=== PATIENT | female | born 1995 | race Caucasian/White ===

== ENCOUNTER 2022-11-08 01:09 | Inpatient (IN) | payer OTHER, SELFPAY ==
[2022-11-08 01:12] VITALS: BP 146/94; PULSE 88; RESP 18; TEMP 36.7; O2SAT 98; BMI 32.3
--- NOTE | 2022-11-08 01:38 | ED_ITS ---
HPI - Psych General Chief Complaint: Psychiatric Symptoms Stated Complaint: SI Time Seen by Provider: 11/08/22 01:16 Source: patient Mode of arrival: EMS Limitations: no limitations History of Present Illness HPI Narrative: 27 yo female with recent divorce made SI statements to friend - found with dog leash in hand plan was to hang herself from tree. no actual hanging no medical complaints. brought in by EMS. MD complaint: suicidal ideation and feels depressed Onset (ago): week(s) Duration: getting worse History of same: Yes Relieving factors: none Exacerbating factors: other (life stress) Context: significant life stressor Associated psychiatric symptoms: depression and suicidal ideation Associated symptoms: denies other symptoms Treatments prior to arrival: placed on mental health hold If self harm: admits thoughts of self harm and has plan Related Data Allergies Allergy/AdvReac Type Severity Reaction Status Date / Time Seasonal Allergies Allergy Runny Nose Verified 11/08/22 01:22 Review of Systems Review of Systems: Constitutional : No Fever, No Chills ENT/Mouth : No Ear Pain, No Nasal Congestion, No sore throat Eyes: No Eye Pain, No Swelling, No Redness Cardiovascular : No Chest Pain, No SOB Respiratory : No Cough, No Sputum, No Dyspnea Gastrointestinal : No Nausea, No Vomiting, No Diarrhea, No Hematochezia, No Melena Genitourinary : No Dysuria, No Urinary Frequency, No Hematuria Musculoskeletal : No Myalgias Skin : No Skin Lesions, No rash Neuro : No Weakness, No Numbness, No Paresthesias, No Dizziness, No Headache Psych : positive Anxiety, positive Depression, positive SI no HI Heme/Lymph: No Lymphadenopathy Endocrine : No Polyuria, No Polydipsia All other systems reviewed and are negative [facility] Past Medical History Medical History (Updated 11/08/22 @ 01:43 by Kirsty Rousseau DO) Anxiety Social History Social History (Updated 11/08/22 @ 01:42 by Kirsty Rousseau DO) Patient Tobacco Use Status: Never used Tobacco Use of substances other than those prescribed or required for medical reasons: No Advance Directives: No Advance Directives Information Provided: Yes Physical Exam Vital Signs: Vital Signs: Last Vital Signs Temp 98.1 F 11/08/22 01:12 Pulse 88 11/08/22 01:12 Resp 18 11/08/22 01:12 BP 146/94 H 11/08/22 01:12 Pulse Ox 98 08/26/23 01:12 O2 Del Method Room Air 11/08/22 01:12 BMI result Body Mass Index 32.3 Appearance: Alert. Oriented X3. No acute distress. crying tearful Eyes: Pupils equal, round and reactive to light. ENT: Pharynx normal. Neck: Normal inspection. Neck supple. CVS: Normal heart rate and rhythm. Pulses normal. Respiratory: No respiratory distress. Breath sounds normal. Abdomen: Soft and nontender. Skin: Skin warm and dry. Normal skin color. Normal skin turgor. Extremities: No lower extremity edema. No calf ttp Neuro: Oriented X 3. No motor deficit. No sensory deficit. Course Course Course Narrative: Physician observation started at 140am. Patient placed in physician observation because the patient needed more time for CARE team to assess the need for psych admission. At the time observation was started the patient's vitals were stable, patient is alert and oriented but slightly anxious, Neuro: nonfocal, CV RRR, Lungs clear Medical Decision Making Medical Decision Making MDM Narrative: 27 yo female with hx of anxiety here with c/o worsening depression in setting of divorce - positive SI plan to hang herself with dog leash from tree. at this time denies trauma or medical complaints will need labs, CARE team consult. Differential Diagnosis Differential Diagnoses: The differential diagnosis associated with the presentation includes SI, depression, adjustment disorder Admission/Observation Consideration of admission/observation: Escalation of care including admission/observation considered observation for care team Consult Healthcare Provider Management of the patient was discussed with: Behavioral Health Provider Lab Data [facility] Lab Attestation statement: I reviewed the patient's lab results. Independent Historian Clinical information obtained from an independent historian. History obtained from or confirmed by: EMS Social Determinants Patient?s care significantly limited by Social Determinants of Health including: Problems related to primary support group Discharge Plan Discharge Clinical Impression: Suicidal ideation Patient Disposition: Still a Patient
[2022-11-08 02:05] LABS: MANUAL DIFF FLAG NO
[2022-11-08 02:07] LABS: Basophils Percent Auto 0.3 % (0-2); Eosinophils Absolute Auto 0.1 X10*3/uL (0.0-0.4); Eosinophils Percent Auto 0.9 % (0-4); Hematocrit 41.7 % (37.0-47.0); Imm Gran Abs Auto 0.02 X10*3/uL (0.00-0.03); Imm Gran Pct Auto 0.2 % (0.0-0.4); Lymphocytes Absolute Auto 2.1 X10*3/uL (1.2-4.9); Lymphocytes Percent Auto 21.6 % (20-40); Mean Corpuscular HGB Conc 33.6 g/dl (31.0-35.0); Mean Corpuscular Hemoglobin 29.8 pg (27.0-33.0); Mean Corpuscular Volume 88.7 fL (80.0-98.0); Mean Platelet Volume 10.4 fL (9.4-12.3); Monocytes Absolute Auto 0.5 X10*3/uL (0.1-1.2); Monocytes Percent Auto 4.8 % (2-11); Neutrophils Percent Auto 72.2 % (45-73); Platelet Count 298 X10*3/uL (160-400); Red Cell Distribution Width 11.7 % (11.0-16.0); White Blood Count 9.7 X10*3/uL (4.8-10.8)
[2022-11-08 02:09] LABS: Appearance Urine Clear; Color Urine Yellow; Glucose Urine UA Negative (Negative); Leukocyte Esterase Urine Trace (Negative); Nitrite Urine Negative (Negative); UMIC TRIGGER UA YES; UPreg QC Valid YES; Urine Blood Negative (Negative); Urine Ketones Negative (Negative); Urine Pregnancy NEGATIVE (NEGATIVE); Urine Protein Trace mg/dL (Neg-Trace)
[2022-11-08 02:16] LABS: Amphetamine Screen Urine Not Detected (Not Detect); Barbiturates, Urine Not Detected (Not Detect); Benzodiazepines Screen Urine Not Detected (Not Detect); Cannabinoid Screen Urine Not Detected (Not Detect); Cocaine Screen Urine Not Detected (Not Detect); Fentanyl, urine Not Detected (Not Detect); Opiate Screen Urine Not Detected (Not Detect); Phencyclidine Screen Urine Not Detected (Not Detect)
[2022-11-08 02:17] LABS: Bacteria Urine 2+ (None Seen); Hyaline Casts Urine 0-2 /LPF (0-2)
[2022-11-08 02:20] LABS: COVID-19 Test Negative (Negative); IDNOW Serial# 6674DD1D
[2022-11-08 02:23] LABS: Alanine Aminotransferase 20 U/L (0-31); Albumin Level 4.4 g/dL (3.5-5.0); Alkaline Phosphatase 81 U/L (39-117); Anion Gap 15 (12-20); Aspartate Amino Transferase 18 U/L (5-31); Bilirubin Total 0.4 mg/dL (0.0-1.0); Blood Urea Nitrogen 7 mg/dL (9-16); Calcium 9.9 mg/dL (8.4-10.2); Carbon Dioxide 23 mmol/L (22-29); Chloride 106 mmol/L (96-108); Creatinine Clr Calc Pharmacy 121.8; Estimated Glomerular Filt Rate > 60; Ethanol < 10 mg/dL; Glucose Random 124 mg/dL (60-115); Sodium 140 mmol/L (135-145); Total Protein 8.1 g/dL (6.5-8.0)
[2022-11-08 03:04] LABS: Acetaminophen LAB < 17 mcg/mL (<30); Salicylate < 5.0 mg/dL (15-30)
[2022-11-08 06:06] VITALS: RESP 16
--- NOTE | 2022-11-08 06:07 | PC.NURSE ---
Patient slept through the night, no distress observed/reported, disposition per care team is section 12 inpatient bed search, VSS, med rec completed/pending provider's approval, behavior non concerning, labs completed/resulted, will continue to monitor.
--- NOTE | 2022-11-08 07:13 | PHA.MEDREC ---
Pharmacy Consult ? Medication Reconciliation Pharmacy has completed the medication reconciliation. Reviewed med rec done by nursing (Aaron).
--- NOTE | 2022-11-08 07:23 | PC.NURSE ---
Assumed care of this patient. Patient sleeping in room. No acute behavioral concerns at this time.
--- NOTE | 2022-11-08 07:45 | PHA.MEDREC ---
Pharmacy Consult ? Medication Reconciliation Pharmacy has reviewed the medication reconciliation completed by Aaron.
[2022-11-08] MEDS: buPROPion HCl XL 300 MG TAB.ER.24H PO (08:53)
[2022-11-08] MEDS: Venlafaxine HCl ER 150 MG CAP.ER.24H PO (08:53)
--- NOTE | 2022-11-08 09:02 | PC.NURSE ---
Intuniv not given, pt refused reporting that she takes it at bed time.
[2022-11-08 09:30] VITALS: BP 145/101; PULSE 108; RESP 20; TEMP 36.3; O2SAT 97
[2022-11-08] MEDS: LORazepam 0.5 MG TABLET PO (13:01)
--- NOTE | 2022-11-08 13:13 | PC.NURSE ---
pt tearful, anxious and scared about going to inpatient unit. Pt asked for PRN anxiety medication. Ativan given per MAY. will ctm
--- NOTE | 2022-11-08 15:25 | PC.NURSE ---
pt has 1:1 sitter present at this time
--- NOTE | 2022-11-08 15:30 | PC.NURSE ---
pt sleeping at this time, respiraitons even and unlabored, skin pwd. Pt has 1:1 sitter present for safety due to recent SI attempt
[2022-11-08 15:54] VITALS: BP 140/87; PULSE 105; RESP 18; TEMP 36.3; O2SAT 98
--- NOTE | 2022-11-08 15:57 | PC.NURSE ---
this nurse went into patients room to ask her if she wanted to take a phone call and found the patient with a blanket over her face and another wrapped around her neck. this rn immediately untied all blankets. Pt was alert, arousable, with full and even respirations unlabored. With assistance of tech, all blankets and pillows were removed from room and this RN stayed with pt until a 1:1 was available. At this time vitals stable, 1:1 with pt. Pt is distressed but is engaging with 1:1 sitter.
--- NOTE | 2022-11-08 16:46 | PC.NURSE ---
pt playing cards with 1:1, appears to be in better spirits, warm blanket was given with instruction that it would only be with 1:1 at bedside and if deemed unsafe it would be taken away. report given to Rony PATEL on M5.
[2022-11-08 19:34] VITALS: BP 132/84; PULSE 101; RESP 16; TEMP 36.1; O2SAT 98; BMI 34.0
[2022-11-08] MEDS: Prazosin HCL 1 MG CAPSULE 4 MG PO (20:59)
--- NOTE | 2022-11-08 23:09 | PC.ADMIT ---
Pt is a 27y/o admitted on CV for SI with a plan to hang herself on a tree with a dog leash. Pt is alert and oriented x3, VSS, covid negative, tox screen negative. Pt is calm and cooperative but tearful through out admission. affect is flat, quiet. Pt is neat, skin assessment completed by another female RN. Pt reports that all her providers are in [place] and seeking to get new providers from here. Pt reports her girlfriend dumped her. Pt reports he feels hopeless. Speech is regular with normal rhythm, tone and asia. Pt endorses depression, SI and anxiety. Denies AH/VH. She is med and meal compliant. Pt is ushered into her room, resting at this time. Admission orders obtained.
[2022-11-09] MEDS: LORazepam 0.5 MG TABLET PO ×2 (06:09→17:08)
[2022-11-09 08:44] VITALS: BP 126/75; PULSE 85; RESP 18; TEMP 36.6; O2SAT 97
[2022-11-09] MEDS: buPROPion HCl XL 300 MG TAB.ER.24H PO (08:46)
[2022-11-09] MEDS: Venlafaxine HCl ER 150 MG CAP.ER.24H PO (08:47)
[2022-11-09 08:58] LABS: Alanine Aminotransferase 15 U/L (0-31); Albumin Level 4.3 g/dL (3.5-5.0); Alkaline Phosphatase 72 U/L (39-117); Anion Gap 11 (12-20); Aspartate Amino Transferase 16 U/L (5-31); Bilirubin Total 0.7 mg/dL (0.0-1.0); Blood Urea Nitrogen 9 mg/dL (9-16); Calcium 9.6 mg/dL (8.4-10.2); Carbon Dioxide 27 mmol/L (22-29); Chloride 104 mmol/L (96-108); Cholesterol 198 mg/dL (<200); Creatinine Clr Calc Pharmacy 122.1; Estimated Glomerular Filt Rate > 60; Glucose Fasting 88 mg/dL (60-99); HDL Cholesterol 50 mg/dL (>40); LDL Cholesterol Calculated 129 mg/dL (<100); Potassium 4.2 mmol/L (3.3-5.1); Sodium 138 mmol/L (135-145); Total Protein 7.3 g/dL (6.5-8.0); Triglycerides 99 mg/dL (<150)
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
[2022-11-09] MEDS: hydrOXYzine HCL 25 MG TABLET PO (11:58)
[2022-11-09 16:52] VITALS: BP 135/82; PULSE 78; RESP 18; TEMP 36.3; O2SAT 97
[2022-11-09] MEDS: guanFACINE HCl ER 2 MG TAB.ER.24H PO (20:42)
[2022-11-09] MEDS: Prazosin HCL 1 MG CAPSULE 4 MG PO (20:42)
[2022-11-09] MEDS: Melatonin 3 MG TABLET PO (21:23)
[2022-11-10 08:20] VITALS: BP 122/69; PULSE 90; RESP 18; TEMP 36.3; O2SAT 97
[2022-11-10] MEDS: Venlafaxine HCl ER 150 MG CAP.ER.24H PO (09:28)
[2022-11-10] MEDS: buPROPion HCl XL 150 MG TAB.ER.24H 450 MG PO (09:28)
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
[2022-11-10] MEDS: hydrOXYzine HCL 50 MG TABLET PO ×2 (10:35→16:12)
[2022-11-10 19:53] VITALS: BP 131/61; PULSE 98; TEMP 36.6
[2022-11-10] MEDS: Prazosin HCL 1 MG CAPSULE 4 MG PO (20:10)
[2022-11-10] MEDS: guanFACINE HCl ER 2 MG TAB.ER.24H PO (20:11)
[2022-11-10] MEDS: LORazepam 0.5 MG TABLET PO (20:16)
[2022-11-11 08:35] VITALS: BP 121/77; PULSE 90; RESP 18; TEMP 36.7; O2SAT 98
[2022-11-11] MEDS: buPROPion HCl XL 150 MG TAB.ER.24H 450 MG PO (09:31)
[2022-11-11] MEDS: Venlafaxine HCl ER 150 MG CAP.ER.24H PO (09:31)
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
[2022-11-11] MEDS: hydrOXYzine HCL 50 MG TABLET PO ×2 (11:10→19:36)
[2022-11-11] MEDS: Dextroamphetamine/Amphetamine XR 10 MG CAP.ER.24H PO (12:08)
[2022-11-11] MEDS: LORazepam 0.5 MG TABLET PO ×2 (14:44→20:53)
[2022-11-11 19:22] VITALS: BP 145/91; PULSE 100; RESP 18; TEMP 36.1; O2SAT 98
[2022-11-11] MEDS: Prazosin HCL 1 MG CAPSULE 4 MG PO (20:54)
[2022-11-11] MEDS: guanFACINE HCl ER 2 MG TAB.ER.24H PO (20:54)
[2022-11-12] MEDS: Venlafaxine HCl ER 150 MG CAP.ER.24H PO (08:55)
[2022-11-12] MEDS: buPROPion HCl XL 150 MG TAB.ER.24H 450 MG PO (08:55)
[2022-11-12 09:18] VITALS: BP 120/68; PULSE 119; RESP 18; TEMP 35.9; O2SAT 97
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
[2022-11-12] MEDS: Acetaminophen 325 MG TABLET 650 MG PO (11:18)
[2022-11-12] MEDS: Docusate Sodium 100 MG CAPSULE PO (13:09)
[2022-11-12] MEDS: Ibuprofen 600 MG TABLET PO (13:09)
[2022-11-12] MEDS: cloNIDine HCL 0.1 MG TABLET PO ×2 (13:09→20:00)
[2022-11-12 13:10] VITALS: BP 121/68; PULSE 107
[2022-11-12 19:27] VITALS: BP 117/71; PULSE 101; TEMP 36.4
[2022-11-12] MEDS: Prazosin HCL 1 MG CAPSULE 4 MG PO (20:00)
[2022-11-12] MEDS: guanFACINE HCl ER 2 MG TAB.ER.24H PO (20:00)
[2022-11-12] MEDS: lamoTRIgine 25 MG TABLET PO (20:00)
[2022-11-13] MEDS: Venlafaxine HCl ER 150 MG CAP.ER.24H PO (08:09)
[2022-11-13] MEDS: Ibuprofen 600 MG TABLET PO (08:09)
[2022-11-13] MEDS: buPROPion HCl XL 150 MG TAB.ER.24H 450 MG PO (08:09)
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
[2022-11-13] MEDS: hydrOXYzine HCL 50 MG TABLET PO (10:38)
== END 2022-11-13 13:45 | disposition home or self-care (01) | DRG 885 ==
LOC: HO.ED 01:57 → HO.PM5 18:07
PROVIDERS: Admitting Provider Psychiatry & Neurology Psychiatry; Emergency Provider Emergency Medicine; Visit Provider Psychiatry & Neurology Psychiatry
DX: F33.2 Major depressive disorder, recurrent severe without psychotic features (principal); R45.851 Suicidal ideations; F41.1 Generalized anxiety disorder; F43.10 Post-traumatic stress disorder, unspecified; Z20.822 Contact with and (suspected) exposure to COVID-19; Z79.899 Other long term (current) drug therapy
CPT/HCPCS: 36415; 80053; 80061; 80143; 80179; 80307; 81001; 81025; 85025; 87635; 99285; S9485

== ENCOUNTER → 2022-11-08 17:30 | Outpatient (BNV) | payer OTHER, SELFPAY | PROVIDERS: Admitting Provider Psychiatry & Neurology Psychiatry; Emergency Provider Emergency Medicine; Visit Provider Psychiatry & Neurology Psychiatry | DX: F33.2 Major depressive disorder, recurrent severe without psychotic features (principal); F43.11 Post-traumatic stress disorder, acute; F41.1 Generalized anxiety disorder | CPT/HCPCS: 90792; 99231; 99232; 99239 ==

== ENCOUNTER → 2022-12-05 12:00 | Outpatient (BNV) | payer OTHER, SELFPAY | PROVIDERS: Visit Provider Psychiatry & Neurology Psychiatry | DX: F32.2 Major depressive disorder, single episode, severe without psychotic features (principal) | CPT/HCPCS: 90792; 99213; 99214 ==

== ENCOUNTER 2022-12-18 11:00 | Outpatient (RCR) | payer OTHER, SELFPAY ==
[2022-12-03 13:11] VITALS: BMI 74.7
--- NOTE | 2022-12-05 08:04 | HO.PHP ---
The clients case was reviewed and opened in treatment team.
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
--- NOTE | 2022-12-10 09:45 | HO.PHP ---
I called [facility] to make a referral for a therapist. They are uncertain about taking the clients out of state insurance . They will get back to me when they have an answer.
--- NOTE | 2022-12-10 10:04 | HO.PHP ---
I sent an email to Rylee Sánchez [facility] re clients need for individual therapist and insurance information.
--- NOTE | 2022-12-10 10:53 | P.PNPSP_ITS ---
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 She has had problems with anxiety and depression since her teens and also had problems with an eating disorder/anorexia which has not been active since she was 22. She started having a very hard time after the marital discord and in October she tried to hang herself and after texting a friend she came up with something that distracted her and when she got back to the house the police were there and she was taken to the emergency room were she again tried to hang herself with a blanket and was hospitalized and try to anger self again on the unit her sheets. She denies any prior attempts. No prior hospitalizations. She is currently on Wellbutrin SR 450 mg daily, Lamictal 50 mg to be increased by 25 mg every 2 weeks up to 100, prazosin 4 mg at night, guanfacine 2 mg at night, Ativan 0.5 mg p.r.n. and she has been using it, maybe once a week and Pristiq 150 mg which she has been on for over 6 months. She denies any side effects and states that she is doing better currently. After the marital issues she came to [place] to be with a close friend and that is when she was hospitalized at [facility]. No history of substance abuse. History of self-destructive behaviors when she was dealing with the eating disorder in her late teens, early 20s. She does have a prescriber at [facility] and has met with her Past Psychiatric History: Diagnosis of generalized anxiety disorder, PTSD, major depression and ADD. From a medication perspective has a prescriber in [place]. On Wellbutrin for the last 5 months 300 mg, Pristiq for 7 months, guanfacine, Ativan and hydroxyzine for 1 month. Prazosin since 2019. Past medications have included Prozac, Zoloft, Lexapro, BuSpar on. There were on lithium or Abilify. No inpatient episodes prior to this. No Suicide attempts Today: Since weekend- sit still, interrupt people, much more anxious. Very hard to focus in last few days so less from program and worried about that. Thursday increased lamictal to 100mg ie after symptoms. COVID booster Thursday. In hospital wellbutrin increased from 300 to 450. Ativan taking less than once per week. Vistaril/hydroxyzine taking 2 times a day. Sleep little broken. Energy ok. Ongoing stressors ie no big changes. Medication Compliance: Yes Side effects from medications: No Attending Groups: Yes Review of Systems Acute medical concerns: No Mental Status Exam Mental Status Exam Narrative: Pleasant. Engaged. Well presented. Organized. Anxious. No SI. No HI. No agitation. No psychosis. Insight and judgment fair Diagnostics Vital Signs (24Hr): BMI result Body Mass Index 74.7 Assessment & Plan Assessment & Plan (1) Major depressive disorder, severe: Status: Acute Code(s): F32.2 - Major depressive disorder, single episode, severe without psychotic features Assessment and Plan: Since starting the partial hospital program, has noted significant increase in anxiety, restlessness, difficulty sleeping and feeling irritable. Only med change while hospitalized prior to partial hospital program was increasing Wellbutrin from 300 mg up to 450 mg along with starting lamotrigine- now at 100mg. Uses Ativan sparingly. Overall may be experiencing increased activation and anxiety symptoms with higher dose of Wellbutrin. Recommend lowering Wellbutrin from 450 mg back down to 300 mg and utilizing Ativan 1-2 times per day on a very short-term basis. We will also allow time to eveluate Lamotrigine 100 mg. Reevaluate with PHP medication provider and if this week or early next week regarding impact of changes Patient educated on: medication risk/benefits Informed Consent: understands Reason for contiued partial hosp. stay Substantial Risk for: med/psych decompensation Certification I certify that partial hospital treatment is medically necessary due to the symptoms and problems resulting from the patient's mental illness and the failure to treat the patient at the partial hospital level of care would likely result in the patient requiring inpatient psychiatric care which could not be prevented at a less intensive level of care. Total time managing care of this patient today ____ minutes. Discharge Plan Discharge Attending provider: Ervin Whalen Medications: No Action bupropion HCl 150 mg tablet extended release 24 hr 150 mg PO QAM 30 Days Qty: 30 2RF Rx Instructions: take with 300mg tab bupropion HCl 300 mg tablet extended release 24 hr 300 mg PO DAILY 30 Days Qty: 30 2RF Rx Instructions: take with 150mg tab desvenlafaxine succinate 100 mg tablet extended release 24 hr 100 mg PO DAILY 30 Days Qty: 30 2RF docusate sodium 100 mg capsule 100 mg PO DAILY 30 Days Qty: 30 2RF Rx Instructions: hold for loose stool guanfacine [Intuniv ER] 2 mg tablet extended release 24 hr 2 mg PO BEDTIME 30 Days Qty: 30 2RF hydroxyzine HCl 50 mg tablet 50 mg PO TID PRN (Reason: mild anxiety) 30 Days Qty: 90 0RF lamotrigine [Lamictal] 25 mg tablet See Rx Instructions .ROUTE .COMPLEX Qty: 41 0RF Rx Instructions: take 1 tab at bedtime for 13 days; then take 2 tabs at bedtime for 14 days lamotrigine [Lamictal] 100 mg tablet 100 mg PO BEDTIME 30 Days Qty: 30 1RF Rx Instructions: start once completed 14 days of taking 50mg qhs lorazepam 0.5 mg tablet 0.5 mg PO TID PRN (Reason: severe anxierty) 30 Days Qty: 30 1RF prazosin 2 mg capsule 4 mg PO BEDTIME 30 Days Qty: 60 2RF Telehealth Telehealth Location of provider rendering services: other ([facility]) Location of patient: other ([facility]) Patient Identification confirmed using: Name, : Yes Telehealth method: video Patient verbally consented to treatment: Yes Minutes spent on Phone/Video with Pt.: 10
--- NOTE | 2022-12-10 15:34 | HO.PHP ---
Rylee Sánchez [facility] called back and requested that Arabella call her. I gave Arabella her phone number
--- NOTE | 2022-12-12 11:10 | HO.PHPPROGNO ---
Subjective Subjective Date of Service: 12/12/22 Reason For Visit: MDD,PTSD Interim History: Arabella is seen in follow-up. She was seen by Dr. Roland 2 days ago and her Wellbutrin SR was decreased to 300 mg because of anxiety and suggested taking the Ativan 0.5 mg b.i.d. p.r.n.. She has used twice a day for both days but we discuss the advisability of trying to see whether is a decrease of Wellbutrin by itself has been adequate and to use the Ativan more on a p.r.n. basis. She needed prescriptions for Pristiq 50 mg and guanfacine 2 mg which were sent to her pharmacy. She also has the hydroxyzine to use Review of Systems Review of Systems Yes all other systems are reviewed and are negative Mental Status Exam Mental Status Exam Narrative: Pleasant. Engaged. Well presented. Organized. Anxious. No SI. No HI. No agitation. No psychosis. Insight and judgment fair Diagnostics Vital Signs (24Hr): BMI result Body Mass Index 74.7 Assessment & Plan Assessment & Plan (1) Major depressive disorder, severe: Status: Acute Code(s): F32.2 - Major depressive disorder, single episode, severe without psychotic features Assessment and Plan: Continue with current regimen and plans. Encouraged to use the Ativan more on a p.r.n. basis and also to use the hydroxyzine Patient educated on: medication risk/benefits Certification I certify that partial hospital treatment is medically necessary due to the symptoms and problems resulting from the patient's mental illness and the failure to treat the patient at the partial hospital level of care would likely result in the patient requiring inpatient psychiatric care which could not be prevented at a less intensive level of care. Total time managing care of this patient today ____ minutes. Discharge Plan Discharge Attending provider: Ervin Whalen Medications: New desvenlafaxine 50 mg tablet extended release 24 hr 50 mg PO DAILY Qty: 30 0RF Rx Instructions: TDD 150 mg/daily guanfacine 2 mg tablet extended release 24 hr 2 mg PO QPM Qty: 30 0RF No Action bupropion HCl 150 mg tablet extended release 24 hr 150 mg PO QAM 30 Days Qty: 30 2RF Rx Instructions: take with 300mg tab bupropion HCl 300 mg tablet extended release 24 hr 300 mg PO DAILY 30 Days Qty: 30 2RF Rx Instructions: take with 150mg tab desvenlafaxine succinate 100 mg tablet extended release 24 hr 100 mg PO DAILY 30 Days Qty: 30 2RF docusate sodium 100 mg capsule 100 mg PO DAILY 30 Days Qty: 30 2RF Rx Instructions: hold for loose stool guanfacine [Intuniv ER] 2 mg tablet extended release 24 hr 2 mg PO BEDTIME 30 Days Qty: 30 2RF hydroxyzine HCl 50 mg tablet 50 mg PO TID PRN (Reason: mild anxiety) 30 Days Qty: 90 0RF lamotrigine [Lamictal] 25 mg tablet See Rx Instructions .ROUTE .COMPLEX Qty: 41 0RF Rx Instructions: take 1 tab at bedtime for 13 days; then take 2 tabs at bedtime for 14 days lamotrigine [Lamictal] 100 mg tablet 100 mg PO BEDTIME 30 Days Qty: 30 1RF Rx Instructions: start once completed 14 days of taking 50mg qhs lorazepam 0.5 mg tablet 0.5 mg PO TID PRN (Reason: severe anxierty) 30 Days Qty: 30 1RF prazosin 2 mg capsule 4 mg PO BEDTIME 30 Days Qty: 60 2RF
--- NOTE | 2022-12-16 11:34 | HO.PHPPROGNO ---
Subjective Subjective Date of Service: 12/16/22 Reason For Visit: MDD,PTSD Interim History: Arabella is seen in follow-up/discharge, scheduled for 12/18/22. She talked about the areas at the program has been very helpful to her. Initially she was not that hopeful because of her experience on the inpatient unit but it was surprisingly helpful to her. She continues on her current medications which we reviewed. She has enough of a supply of all of woman and has an outpatient prescriber and she was connected to a therapist with whom she will be meeting next week. No changes were made today Medication Compliance: Yes Side effects from medications: No Attending Groups: Yes Review of Systems Review of Systems Yes all other systems are reviewed and are negative Mental Status Exam Mental Status Exam Narrative: In today's visit she is alert, oriented and pleasant. Normal speech. Good eye contact. Affect is appropriate and varied. No overt signs of psychosis, depression. No SI upon inquiry. Cognitively intact. Judgment is intact Diagnostics Vital Signs (24Hr): BMI result Body Mass Index 74.7 Assessment & Plan Assessment & Plan (1) Major depressive disorder, severe: Status: Acute Code(s): F32.2 - Major depressive disorder, single episode, severe without psychotic features Plan She will be discharged on 12/18 Patient educated on: medication risk/benefits Certification I certify that partial hospital treatment is medically necessary due to the symptoms and problems resulting from the patient's mental illness and the failure to treat the patient at the partial hospital level of care would likely result in the patient requiring inpatient psychiatric care which could not be prevented at a less intensive level of care. Total time managing care of this patient today ____ minutes. Discharge Plan Discharge Attending provider: Ervin Whalen Medications: New desvenlafaxine 50 mg tablet extended release 24 hr 50 mg PO DAILY Qty: 30 0RF Rx Instructions: TDD 150 mg/daily guanfacine 2 mg tablet extended release 24 hr 2 mg PO QPM Qty: 30 0RF No Action bupropion HCl 150 mg tablet extended release 24 hr 150 mg PO QAM 30 Days Qty: 30 2RF Rx Instructions: take with 300mg tab bupropion HCl 300 mg tablet extended release 24 hr 300 mg PO DAILY 30 Days Qty: 30 2RF Rx Instructions: take with 150mg tab desvenlafaxine succinate 100 mg tablet extended release 24 hr 100 mg PO DAILY 30 Days Qty: 30 2RF docusate sodium 100 mg capsule 100 mg PO DAILY 30 Days Qty: 30 2RF Rx Instructions: hold for loose stool guanfacine [Intuniv ER] 2 mg tablet extended release 24 hr 2 mg PO BEDTIME 30 Days Qty: 30 2RF hydroxyzine HCl 50 mg tablet 50 mg PO TID PRN (Reason: mild anxiety) 30 Days Qty: 90 0RF lamotrigine [Lamictal] 25 mg tablet See Rx Instructions .ROUTE .COMPLEX Qty: 41 0RF Rx Instructions: take 1 tab at bedtime for 13 days; then take 2 tabs at bedtime for 14 days lamotrigine [Lamictal] 100 mg tablet 100 mg PO BEDTIME 30 Days Qty: 30 1RF Rx Instructions: start once completed 14 days of taking 50mg qhs lorazepam 0.5 mg tablet 0.5 mg PO TID PRN (Reason: severe anxierty) 30 Days Qty: 30 1RF prazosin 2 mg capsule 4 mg PO BEDTIME 30 Days Qty: 60 2RF
== END 2022-12-18 23:59 | disposition home or self-care (01) ==
LOC: HO.PHPA 11:00
PROVIDERS: Visit Provider Psychiatry & Neurology Psychiatry
DX: F32.2 Major depressive disorder, single episode, severe without psychotic features (principal); F43.10 Post-traumatic stress disorder, unspecified; Z79.899 Other long term (current) drug therapy
CPT/HCPCS: 90791; 90853